=== PATIENT | male | born 1995 | race Caucasian/White ===

== ENCOUNTER 2024-10-19 06:55 | Emergency (ER) | payer OTHER, SELFPAY ==
[2024-10-19 07:10] VITALS: BP 139/66; PULSE 75; RESP 16; TEMP 36.6; O2SAT 97; BMI 34.0
--- NOTE | 2024-10-19 08:04 | ED.BACK ---
HPI - Back Pain/Injury General Chief Complaint: Back Pain/Injury Stated Complaint: Lower back pain Time Seen by Provider: 10/19/24 08:04 Source: patient History of Present Illness HPI Narrative: 28-year-old gentleman history of back pain currently in physical therapy at this time was doing leg presses morning when he felt a pop and ever since he did the leg press he has been experiencing pain bilateral in his lower back that radiates to both hip region and he feels a little bit unsteady in his walk and gait but does not require any assistance. He denies numbness tingling that goes completely down the legs, bowel or bladder incontinence, belly pain,hematuria, UTI symptoms. He has not taken anything for this prior to his arrival here. Other than what is stated 14 point review of system is negative MD Complaint: back pain Onset (ago): hour(s) (1-2 hurs) Duration: progressively worsening Similar Symptoms Previously: No Location: lumbar spine Severity: moderate Quality: sharp and spasming Radiation: other (bilateral hips) Related Data Previous Rx's Medication Instructions Recorded cyclobenzaprine 10 mg tablet 10 mg PO TID PRN muscle spasm #30 10/19/24 tabs diclofenac sodium 50 mg 50 mg PO TID PRN pain #30 tabs 10/19/24 tablet,delayed release prednisone 20 mg tablet 20 mg PO DAILY #5 tabs 10/19/24 Allergies Allergy/AdvReac Type Severity Reaction Status Date / Time No Known Drug Allergies Allergy Verified 10/19/24 07:09 Review of Systems Review of Systems ROS Unobtainable: All systems reviewed & are unremarkable except as noted in HPI and below Patient History Social History Smoking Status: Never smoker Smoking Status: Never smoker Exam Narrative Exam Narrative: GENERAL: [85] year old patient appears stated age. Well-developed patient, in mild distress. HEAD: Atraumatic. Normocephalic. EYES: Pupils equal round and reactive. Extraocular motions intact. No scleral icterus. No injection or drainage. NECK: Trachea midline. Non tender CARDIOVASCULAR: Regular rate and rhythm without murmurs, gallops, or rubs. RESPIRATORY: Clear to auscultation. Breath sounds equal bilaterally. No wheezes, rales, or rhonchi. . EXTREMITIES: No edema or joint tenderness. BACK: No C/T/L SPINE ttp but has b/l paralumbosacral region TTP L4/5/S1 worse on L side, Motor/sensory intact +2DP +2PT cap refill <2secs No flank tenderness. NEURO: AOx3. SKIN: No rash or erythema of visible areas Initial Vital Signs Initial Vital Signs: Vital Signs Temperature 97.9 F 10/19/24 07:10 Pulse Rate 75 10/19/24 07:10 Respiratory Rate 16 10/19/24 07:10 Blood Pressure 139/66 10/19/24 07:10 Pulse Oximetry 97 10/19/24 07:10 Oxygen Delivery Method Room Air 10/19/24 07:10 [place] [facility] [place] Procedure: L sided back trigger point injection Pt drapped and prepped in sterile fashion. Using kenalog 40mg (1ml) and 9ml) 2% lido w/o epi using 10 ml syringe with a 22g 1 1/2 g needle 3ml ( L4 ) 3ml (L5 ) 3ml (S1) into L paralumbosacral region w/o any complication. Course Orders Ordered: Discontinued Medications Ketorolac Tromethamine (Ketorolac 30 Mg/Ml Vial) 30 mg IM NOW ONE Stop: 10/19/24 08:47 Last Admin: 10/19/24 09:04 Dose: 30 mg Documented By: KM Lidocaine HCl (Lidocaine 2% Inj Mdv 20ml) 10 ml INJ INTRA-OP ONE Stop: 10/19/24 08:31 Last Admin: 10/19/24 08:28 Dose: 10 ml Documented By: CTS Triamcinolone (Triamcinolone 40 Mg/Ml Vial) 40 mg IM NOW ONE Stop: 10/19/24 08:14 Last Admin: 10/19/24 08:28 Dose: 40 mg Documented By: CTS Vital Signs Vital signs: Vital Signs - 8 hr 10/19/24 07:10 Temperature 97.9 F Pulse Rate 75 Respiratory Rate 16 Blood Pressure 139/66 Pulse Oximetry 97 Oxygen Delivery Method Room Air MDM - Back Pain/Injury Imaging Data Extremity x-ray #1: Radiologist's Impression: [address] [address] XRay Report Signed Patient: Roni Sue MR#: [id number] : 1995 Acct:[id number] Age/Sex: 28 / M Date of Service: 10/19/24 Loc: ED Accession Number: [id number] Procedure: XR lumbar spine min 4V Ordering Provider: Miki Gramajo D.O. PROCEDURE: XR LUMBAR SPINE MIN 4V INDICATIONS: pain TECHNIQUE: 5 views of the lumbar spine were acquired, including bilateral oblique views. COMPARISON: None. FINDINGS: Bones: 5 nonrib-bearing vertebrae are present. There is normal bony alignment. No vertebral body compression fractures. No suspicious bony lesions. Mild disc height loss at L4-5 and L5-S1. Soft tissues: Overlying bowel gas pattern is normal. No suspicious soft tissue calcifications. Oblique images: No pars defects. IMPRESSION: Mild disc height loss at L4-5 and L5-S1. Dictated by: Smooth Millan M.D. on 10/19/2024 at 9:07 Approved by: Smooth Millan M.D. on 10/19/2024 at 9: MDM Narrative Medical decision making narrative: All imaging,, RN note, triage note, medication list, old records from previous visits, vital signs all reviewed. Pt given L sided trigger point injection and toradol here. D/c home on diclofenac, flexeril, and prednisone rx. Differential dx herniated disc, muscle strain, pirformis syndrome, sciatica. Discharge Plan Departure Patient Disposition: Home Clinical Impression: Acute back pain Qualifiers: Back pain location: low back pain Back pain laterality: bilateral Sciatica presence: without sciatica Qualified Code(s): M54.50 - Low back pain, unspecified Instructions: DI for Low Back Pain Activity Restrictions/Additional Instructions: Return with new or worsening symptoms. Take your prescriptions as directed Prescriptions: New diclofenac sodium 50 mg tablet,delayed release (DR/EC) 50 mg PO TID PRN (Reason: pain) Qty: 30 0RF cyclobenzaprine 10 mg tablet 10 mg PO TID PRN (Reason: muscle spasm) Qty: 30 0RF prednisone 20 mg tablet 20 mg PO DAILY Qty: 5 0RF Stand Alone Forms: Patient Portal/API/Survey
[2024-10-19] MEDS: TRIAMCINOLONE 40 MG/ML VIAL IM (08:28)
[2024-10-19] MEDS: LIDOCAINE 2% INJ MDV 20ML 10 ML INJ (08:28)
--- NOTE | 2024-10-19 08:46 | DI.RAD.S_ITS ---
PROCEDURE: XR LUMBAR SPINE MIN 4V INDICATIONS: pain TECHNIQUE: 5 views of the lumbar spine were acquired, including bilateral oblique views. COMPARISON: None. FINDINGS: Bones: 5 nonrib-bearing vertebrae are present. There is normal bony alignment. No vertebral body compression fractures. No suspicious bony lesions. Mild disc height loss at L4-5 and L5-S1. Soft tissues: Overlying bowel gas pattern is normal. No suspicious soft tissue calcifications. Oblique images: No pars defects. IMPRESSION: Mild disc height loss at L4-5 and L5-S1. Dictated by: Smooth Milaln M.D. on 10/19/2024 at 9:07 Approved by: Smooth Millan M.D. on 10/19/2024 at 9:07
[2024-10-19] MEDS: KETOROLAC 30 MG/ML VIAL IM (09:04)
--- NOTE | 2024-10-19 10:14 | PC.NURSE ---
trigger point injection completed by Dr Gramajo. Tolerated well. NAD. walked to and from XR without issue.
[2024-10-19 10:15] VITALS: BP 126/64; PULSE 77; RESP 16; O2SAT 96
== END 2024-10-19 10:16 | disposition home or self-care (01) ==
PROVIDERS: Emergency Provider Family Medicine
DX: M54.50 Low back pain, unspecified (principal)
CPT/HCPCS: 20552; 72110; 96372; 99283; 99284; J1885